=== PATIENT | female | born 1990 | race Caucasian/White ===

== ENCOUNTER 2017-06-10 14:11 | Outpatient (CLI) | payer BC ==
[2017-06-10 14:39] VITALS: BP 111/71
[2017-06-10 16:01] VITALS: BP 110/60
== END 2017-06-10 16:55 | disposition home or self-care (01) ==
LOC: LDRP-OP 14:11 → 2WEST 14:14 → LDRP-OP 08-28 14:23
DX: O26.93 Pregnancy related conditions, unspecified, third trimester (principal); O98.513 Other viral diseases complicating pregnancy, third trimester; Z3A.32 32 weeks gestation of pregnancy
CPT/HCPCS: 59025; G0378

== ENCOUNTER 2017-06-14 14:06 | Outpatient (CLI) | payer BC ==
[2017-06-14 14:20] VITALS: BP 123/75
[2017-06-14] MEDS ORDERED: ZOFRAN4 MG PO (14:29)
[2017-06-14] MEDS ORDERED: EFFEXOR XR150 MG PO (14:29)
[2017-06-14 15:19] LABS: HEMATOCRIT 27.6 % (36.0-46.0); HEMOGLOBIN 8.9 G/DL (11.9-15.5); MCH 27.2 PG (29.0-34.0); MCHC 32.2 G/DL (30.0-36.0); MCV 84.4 FL (83-99); NRBC (%) 0.5 /100 WBC (0-0); PLATELET COUNT 266 K/uL (156-360); RBC DIS.WIDTH-CV 12.7 % (11.8-14.6); RBC DIS.WIDTH-SD 38.5 % (39-53); RED BLOOD COUNT 3.27 M/uL (3.80-5.20); WHITE BLOOD COUNT 8.4 K/uL (4.1-10.2)
[2017-06-14 15:33] LABS: ALBUMIN 2.6 G/DL (3.2-4.8); CHLORIDE 105 MEQ/L (99-109); POTASSIUM 3.7 MEQ/L (3.7-5.4); SODIUM 137 MEQ/L (136-147); TOTAL BILIRUBIN 0.4 MG/DL (0.0-1.0)
[2017-06-14 15:38] LABS: ALKALINE PHOSPHATASE 181 IU/L (3-129); ALT (GPT) 15 IU/L (3-49); AST (GOT) 22 IU/L (2-34); CREATININE 0.6 MG/DL (0.6-1.3); GFR ESTIMATE (CALCULATED) > 59 mL/min/; GLUCOSE 76 mg/dL (70-99); TOTAL PROTEIN 5.4 G/DL (6.4-8.3); UREA NITROGEN (BUN) 5 mg/dL (9-23)
[2017-06-14] MEDS ORDERED: ZITHROMAX500 MG PO (15:42)
[2017-06-14] MEDS ORDERED: FEOSOL325 MG PO (15:42)
[2017-06-14 15:57] LABS: ABS NEUTROPHIL COUNT 6.1; ANISOCYTOSIS 1+; ATYPICAL LYMPHOCYTE 3.6 %; BAND NEUTROPHILS 5.3 % (0-8.0); EOSINOPHIL ABS CT 0.1; EOSINOPHILS 0.9 % (0-5.0); HELMET CELLS 1+; HYPOCHROMASIA 2+; LYMPHOCYTES 16.1 % (15.0-45.0); MICROCYTOSIS 1+; MONOCYTES 6.2 % (0-9.0); NUCLEATED RBC'S 0.9; PLAT.SUFFICIENCY ADEQUATE; SEG.NEUTROPHILS 67.9 % (46.0-76.0); SPHEROCYTES 1+; TEAR DROP CELLS 1+
== END 2017-06-14 16:03 | disposition home or self-care (01) ==
LOC: LDRP-OP 14:06 → 2WEST 14:08 → LDRP-OP 08-28 21:40
PROVIDERS: Obstetrics & Gynecology
DX: O36.8330 Maternal care for abnormalities of the fetal heart rate or rhythm, third trimester, not applicable or unspecified (principal); O98.813 Other maternal infectious and parasitic diseases complicating pregnancy, third trimester; A04.5 Campylobacter enteritis; Z3A.33 33 weeks gestation of pregnancy
CPT/HCPCS: 59025; 80053; 85025; G0378

== ENCOUNTER 2017-07-15 06:47 | Inpatient (IN) | payer BC ==
[~2017-07-15] VITALS: Ht 162.6 cm; Wt 77.1 kg
[2017-07-15] VITALS (18 sets, daily range): BP systolic 105–138; BP diastolic 56–85
[~2017-07-15 06:47] MED LIST: EFFEXOR XR150 MG PO; FEOSOL325 MG PO; ZITHROMAX500 MG PO; ZOFRAN4 MG PO
[2017-07-15 08:02] LABS: BASOPHIL COUNT 0.1 K/uL (0-0.1); EOSINOPHIL (%) 0.1 % (0-5); HEMATOCRIT 28.3 % (36.0-46.0); IMMATURE GRANULOCYTE (%) 1.4 % (0.0-0.7); IMMATURE GRANULOCYTE COUNT 0.2 K/uL; INSTRUMENT ABS NEUTROPHIL CT 11.2 K/uL; LYMPHOCYTE COUNT 2.1 K/uL (1.0-2.8); MCH 25.4 PG (29.0-34.0); MCHC 30.7 G/DL (30.0-36.0); MCV 82.7 FL (83-99); MEAN PLAT.VOLUME 11.7 uM^3 (9.5-12.4); MONOCYTE (%) 4.8 % (3-12); MONOCYTE COUNT 0.7 K/uL (0-0.8); NEUTROPHIL (%) 78.5 % (45-76); NEUTROPHIL COUNT 11.2 K/uL (1.8-6.4); PLATELET COUNT 212 K/uL (156-360); RBC DIS.WIDTH-CV 14.5 % (11.8-14.6); RBC DIS.WIDTH-SD 43.2 % (39-53); RED BLOOD COUNT 3.42 M/uL (3.80-5.20); WHITE BLOOD COUNT 14.3 K/uL (4.1-10.2)
[2017-07-15] MEDS ORDERED: MOTRIN800 MG PO (14:35)
[2017-07-16 09:03] VITALS: BP 117/70
[2017-07-16 14:59] VITALS: BP 141/87
[2017-07-17 07:28] VITALS: BP 130/78
== END 2017-07-17 14:16 | disposition home or self-care (01) | DRG 775 ==
LOC: LDRP-OP 06:47 → 2WEST 06:48 → LDRP-OP 08-28 22:27
PROVIDERS: Advanced Practice Midwife
PROC: 0HQ9XZZ Repair Perineum Skin, External Approach (ICD-10-PCS; principal; 2017-07-15)
PROC: 10907ZC Drainage of Amniotic Fluid, Therapeutic from Products of Conception, Via Natural or Artificial Opening (ICD-10-PCS; principal; 2017-07-15)
PROC: 3E0R3BZ Introduction of Anesthetic Agent into Spinal Canal, Percutaneous Approach (ICD-10-PCS; principal; 2017-07-15)
PROC: 00HU33Z Insertion of Infusion Device into Spinal Canal, Percutaneous Approach (ICD-10-PCS; principal; 2017-07-15)
PROC: 10E0XZZ Delivery of Products of Conception, External Approach (ICD-10-PCS; principal; 2017-07-15)
DX: O70.0 First degree perineal laceration during delivery (principal); O77.0 Labor and delivery complicated by meconium in amniotic fluid; O99.02 Anemia complicating childbirth; D64.9 Anemia, unspecified; Z3A.37 37 weeks gestation of pregnancy; Z37.0 Single live birth; O99.52 Diseases of the respiratory system complicating childbirth; J45.909 Unspecified asthma, uncomplicated; O99.353 Diseases of the nervous system complicating pregnancy, third trimester; G43.909 Migraine, unspecified, not intractable, without status migrainosus; O99.613 Diseases of the digestive system complicating pregnancy, third trimester; R19.7 Diarrhea, unspecified; O99.344 Other mental disorders complicating childbirth; F41.0 Panic disorder [episodic paroxysmal anxiety]; F32.9 Major depressive disorder, single episode, unspecified; Z87.891 Personal history of nicotine dependence
CPT/HCPCS: 85025; C1755; J3010; J7120